=== PATIENT | male | born 1970 | race Caucasian/White ===

== ENCOUNTER 2022-04-24 19:41 | Emergency (ER) | payer OTHER, SELFPAY ==
[2022-04-24 19:42] VITALS: BP 142/90; PULSE 92; RESP 18; TEMP 36.4; O2SAT 98; BMI 28.4
--- NOTE | 2022-04-24 20:10 | EX.ED.GENINJ ---
HPI History of Present Illness Chief Complaint: Laceration Narrative Narrative: Presents with a right knee laceration, he used a knife to cut a hose. He has no other injuries. Tetanus is not up-to-date [facility] Home Medications No Known/Unobtainable [No Known Home Medications] 11/19/13 [History Last Taken Unknown] Allergy/AdvReac Type Severity Reaction Status Date / Time meperidine HCl [From Demerol] AdvReac Vomiting Verified 04/24/22 19:44 Social History Smoking Status: Never smoker ROS ROS ED ROS Narrative Past medical history: none Medications: Reviewed Social history: Noncontributory Review of systems: Musculoskeletal: Right knee laceration Skin: Lack as above Neurological: No weakness or paresthesias Hematologic: No easy bleeding or easy bruising EXAM Physical Exam Narrative Exam Narrative: Physical exam General: Patient does not appear in significant distress . Head: Normocephalic, Atraumatic Neck: No C-spine tenderness Cardiovascular: Normal distal pulses Back: Nontender, Normal Inspection. Extremities: Right knee shows a 5 cm laceration that is lateral to the knee, it does not involve any deep tissue there is no tendon damage neurovascularly he is intact. Skin: Laceration as above Neurological: Normal strength and sensation Const Vital Signs: 04/24/22 19:42 Temperature 97.6 F L Temperature Source Temporal Pulse Rate 92 Respiratory Rate 18 Blood Pressure 142/90 H Blood Pressure Mean 107 Pulse Ox 98 Oxygen Delivery Method Room Air PROC Procedures Lacerations Laceration: Length: 1.97 in Depth: Skin Shape: Linear Prep: Shure-Clens Laceration repair: Irrigated and Lidocaine with epi (5 mL) Irrigated (ml): 10 Number of Sutures/Yassine: 5 Suture Information: Ethilon and 4-0 Comment: 3 of the sutures were 3-0 nylon since it was over the extensor. MDM MDM MDM Narrative Medical decision making narrative: Patient was sutured. He tolerated procedure well. Tetanus will be updated I will discharge in stable condition Discharge Plan Triage Chief Complaint: Laceration ED Provider: Dave Fall Dx/Rx/DC Orders Clinical Impression: Laceration of knee, right, Acute knee pain Instructions: ED Laceration: All Closures Prescriptions: No Action No Known Home Medications RF: 0 Primary Care Provider: Alivia Lopez Referrals: Alivia Lopez DO [Primary Care Provider] - 10-14 Days suture removal Disposition Disposition: Home, Self Care
[2022-04-24] MEDS: Diphth,Pertuss(Acell),Tet Vac 0.5 ML Vial IM (20:20)
[2022-04-24 20:28] VITALS: BP 129/84; PULSE 71; RESP 16; O2SAT 98
== END 2022-04-24 20:29 | disposition home or self-care (01) ==
PROVIDERS: Emergency Provider Emergency Medicine; PCP Internal Medicine; Visit Provider Emergency Medicine
DX: S81.011A Laceration without foreign body, right knee, initial encounter (principal); Z23 Encounter for immunization; W26.0XXA Contact with knife, initial encounter; Y93.89 Activity, other specified; Y99.9 Unspecified external cause status; Y92.9 Unspecified place or not applicable
CPT/HCPCS: 12002; 90471; 90715; 99282

== ENCOUNTER 2024-12-01 17:07 | Emergency (ER) | payer OTHER, SELFPAY ==
[2024-12-01 17:08] VITALS: BP 151/84; PULSE 95; RESP 18; TEMP 36.6; O2SAT 96; BMI 32.1
--- NOTE | 2024-12-01 17:21 | RAD_ITS ---
EXAM: XR LEFT TIBIA AND FIBULA, 2 VIEWS CLINICAL INDICATION: crush injury TECHNIQUE: Frontal and lateral views of the left tibia and fibula. COMPARISON: No relevant prior studies available. FINDINGS: BONES/JOINTS: Achilles spur. No acute fracture. No subluxation. Normal alignment. Preservation of the joint space. No sclerotic or destructive changes observed. SOFT TISSUES: Unremarkable. No soft tissue swelling or gas. No radiopaque foreign body. RAD/Tibia & Fibula 2 Views IMPRESSION: No acute findings in the left tibia and fibula or surrounding soft tissues. Electronically Signed: Chavo Maloney MD at 18:17 EST ,
--- NOTE | 2024-12-01 17:21 | ED.VIS.LOWEX ---
HPI History of Present Illness Chief Complaint: Lower Extremity Injury Detail of Chief Complaint: Injury left leg Informant: patient Narrative Narrative: Patient presents to the emergency department with an injury to his left lower extremity. Patient states that a bundle of siding fell onto his left leg pinning it and he was unable to extricate himself and required 6 men to remove the sliding off of his leg. He did not attempt to walk afterwards. No significant medical history otherwise. PFSH PFSH Medical History no medical history Home Medications ?Medication ?Instructions ?Recorded ?Last Taken ?Type No Known/Unobtainable [No Known 11/19/13 Unknown History Home Medications] Allergy/AdvReac Type Severity Reaction Status Date / Time meperidine HCl (From Demerol) AdvReac Vomiting Verified 12/01/24 17:08 Family History no significant family his Surgical History no surgical history Social History Smoking Status: Never smoker ROS ROS ED Review of Systems ROS Unobtainable: other Constitutional Constitutional ED: Reports lethargy; Denies chills, fever(s), sweats or weight loss Eyes Eyes: Denies blurry vision, change in vision or diplopia ENT ENT ED: Denies rhinorrhea or sore throat Cardiovascular Cardiovascular: Denies chest pain, orthopnea or racing heartbeat Respiratory/Chest Respiratory/Chest: Denies cough, dyspnea, dyspnea on exertion, orthopnea or sputum Gastrointestinal Gastrointestinal: Denies abdominal pain, diarrhea, nausea or vomiting Genitourinary Genitourinary ED: Denies dysuria, hematuria or urinary frequency Musculoskeletal Musculoskeletal: Reports other Details: Left leg injury/crush injury ; Denies arthralgias, back pain, myalgias or neck pain Integumentary Denies abscess, Abrasions or rash Neurologic Neurologic: Denies headache(s) or weakness Psychiatric Psychiatric: Denies anxiety, depression or suicidal thoughts Endocrine Endocrinology: Denies polydipsia, polyphagia or polyuria Hematologic/Lymphatic Hematologic/Lymphatic: Denies easy bleeding, easy bruising or lymphadenopathy Allergic/Immunologic Allergic/Immunologic ED: Denies mouth swelling, tongue swelling or urticaria EXAM Physical Exam Const Vital Signs: 12/01/24 17:08 Temperature 97.9 F Temperature Source Oral Pulse Rate 95 Respiratory Rate 18 Blood Pressure 151/84 H Blood Pressure Mean 106 Pulse Ox 96 Oxygen Delivery Method Room Air Positive well nourished and well developed General Appearance ED: well developed and NAD HEENT Reports TM's clear and moist mucous membranes normocephalic and atraumatic; Negative for trauma or tenderness Tympanic Membrane ED: Yes TM's clear Eyes PERRL and EOMs intact bilaterally General Eye ED: Negative for pale conjunctiva or scleral icterus Neck no lymphadenopathy, supple and no JVD General: Negative for tenderness Chest Wall inspection of chest normal and palpation of chest normal Chest: Negative for tenderness Resp normal respiratory effort and clear to auscultation bilaterally Effort and Inspection: Negative for respiratory distress or pain with movement Auscultation: Negative for rhonchi, wheezes or diminished lung sounds Cardio regular rate, regular rhythm, S1 normal heart sound, S2 normal heart sound and no murmurs Peripheral Pulses: pulses 2+ throughout GI normal to inspection, nondistended, normoactive bowel sounds, soft to palpation, non-tender, non-distended and no masses Back/Spine no CVA tenderness and no thoracic nor lumbar tenderness Extremity Extremity Narrative: Left leg-over the distal third of the tibia medially there is some indentation in the skin from pressure against the leg from the siding. Also small indentation to the lateral aspect of the calf on the opposite side. No broken skin noted. No significant bony tenderness on exam. Calf compartments are soft. He is able to move his ankle without difficulty and has normal range of motion at the ankle and in his foot. Normal dorsal pedal and posterior tibial pulses and normal cap refill. General Extremety ED: Negative for edema General Extremity: Negative for edema Neuro oriented x3, CN's II-XII intact bilaterally, no sensory deficits noted and gait normal Sensorium / Orientation: awake, alert, oriented to person, oriented to place and oriented to time Motor Exam: strength 5/5 throughout and strength abnormal Psych mental status grossly normal Skin no rashes or lesions noted and no wounds MDM MDM MDM Narrative Medical decision making narrative: 2 view x-ray of the left tib-fib obtained interpreted by myself as no evidence of fracture or dislocation. Official report from radiology pending. I did have the patient's stand and ambulate in the room is able to ambulate without difficulty. At this time there is no evidence of compartment syndrome. I did discuss with patient signs and symptoms of compartment syndrome and advised him to return if increasing pain, swelling, pallor to the extremity, paresthesias, or condition should worsen anyway. Advised him to ice and elevate the extremity. Use ibuprofen or Tylenol for discomfort. Prior to discharge reevaluated patient and he states that he feels pretty good. Does not want an Kg wrap or crutches. He does not want thing for pain. Radiography Diagnostic Testin view x-rays of left tib-fib obtained interpreted by myself as no evidence of fracture or dislocation. Radiology in agreement. Discharge Plan Triage Chief Complaint: Lower Extremity Injury ED Provider: Mariaa Wilson Dx/Rx/DC Orders Clinical Impression: Contusion of left leg, Crushing injury of left leg Instructions: ED Soft Tissue Contusion, ED Contusion, Lower Extremity Prescriptions: No Action No Known Home Medications Primary Care Provider: Alivia Lopez Referrals: Alivia Lopez DO [Primary Care Provider] - 3-5 Days Print Language: Mongolian Disposition Disposition: Home, Self Care
[2024-12-01 18:32] VITALS: BP 146/88; PULSE 91; RESP 18; TEMP 36.4; O2SAT 99
== END 2024-12-01 18:35 | disposition home or self-care (01) ==
PROVIDERS: Emergency Provider Emergency Medicine; PCP Internal Medicine; Visit Provider Emergency Medicine
DX: S80.12XA Contusion of left lower leg, initial encounter (principal); S87.82XA Crushing injury of left lower leg, initial encounter; W23.1XXA Caught, crushed, jammed, or pinched between stationary objects, initial encounter